=== PATIENT | male | born 1980 | race Caucasian/White ===

== ENCOUNTER 2021-01-08 15:18 | Emergency (ER) | payer SELFPAY ==
[2021-01-08] MEDS ORDERED: Lidocaine 1% 20 ML MDV ONE (17:50)
[2021-01-08] MEDS ORDERED: Bacitracin 1 PK ONE (18:09)
[2021-01-08] MEDS ORDERED: Ibuprofen 800 MG TAB ONE (18:23)
[2021-01-08] MEDS ORDERED: HYDROcodone/Acetaminophen 5/325 mg Tablet ONE (18:23)
[2021-01-08] MEDS ORDERED: Cephalexin 500 MG CAP ONE (18:23)
== END 2021-01-08 18:25 | disposition home or self-care (01) ==
LOC: MADERS 15:18
DX: S61.141A Puncture wound with foreign body of right thumb with damage to nail, initial encounter (principal); F17.200 Nicotine dependence, unspecified, uncomplicated; W26.8XXA Contact with other sharp object(s), not elsewhere classified, initial encounter
CPT/HCPCS: 99283